=== PATIENT | female | born 1975 | race Caucasian/White ===

== ENCOUNTER → 2018-07-03 | Outpatient (REF) | payer BC ==
[2018-07-03 13:08] LABS: IMMUNOGLOBULIN A 98 MG/DL (70-400)
[2018-07-03 13:37] LABS: CONTROL LINE HPYORI INT CTR LINE PRESENT; H PYLORI QUALITATIVE IgG NEGATIVE (NEGATIVE)
[2018-07-05 00:30] LABS: TISSUE TRANSGLUTAMINASE IgA <2 U/mL (0-3)
[2018-07-05 00:30] LABS: ENDOMYSIAL ABY IgA Negative (Negative)
== END ==
LOC: M LAB REF 12:35
DX: R19.4 Change in bowel habit (principal)
CPT/HCPCS: 86255

== ENCOUNTER → 2019-09-19 | Outpatient (CLI) | payer BC, SELFPAY ==
--- NOTE | 2019-09-19 11:38 | REP ---
DIGITAL DIAGNOSTIC BILATERAL MAMMOGRAPHY WITH CAD, 3D TOMOGRAPHY, AND FOCUSED RIGHT BREAST SONOGRAPHY: HISTORY: Palpable lump right breast times 6 days. Comparison mammography September 19, 2014. FINDINGS: A skin marker is affixed to the skin at the site of the palpable lump in the upper outer quadrant right breast. Routine views are augmented by magnified focal spot compression images. They are two small well circumscribed nodular densities in the upper outer quadrant approximately 4 cm away from the skin marker. These are felt to be unchanged from the 2015 prior mammography. Breast parenchyma remains heterogeneously dense in a pattern which may inhibit the sensitivity of mammography although there has been some involutional change. No other significant mammographic finding is seen in either breast. No spiculation, microcalcification or architectural distortion is seen. No worrisome skin changes appreciated. SONOGRAPHIC FINDINGS: The right breast is scanned in the upper outer quadrant. At 9-o'clock position, 4 cm from the nipple, there is a 6 x 5 x 4 mm cyst. In the 10-o'clock position approximately 1 cm from the nipple, there is a 7 x 6 by 3 mm hypoechoic lesion consistent with a grouping of microcysts. This has a benign appearance with a well defined back wall and enhanced through transmission. These are felt to account for the mammographic opacities. Sonographic findings are otherwise normal. Mildly heterogeneous fibroglandular background echotexture is seen. IMPRESSION: BIRADS 2: BI-RADS/ACR category 2 mammogram. Benign Findings. BIRADS category 2 benign findings. Clinical followup is advised. Repeat screening mammography recommended 1 year. This mammogram was interpreted with the aid of an FDA-approved computer-aided detection system. The patient states she had a clinical breast exam in September 2019. The patient letter being requested is M2 dense This patient's estimated Tyrer-zick lifetime risk assessment for the breast cancer is 9.5 %.
== END ==
LOC: M WHC 08:02
PROVIDERS: ATTEND Nurse Practitioner Women's Health
DX: N60.01 Solitary cyst of right breast (principal)
CPT/HCPCS: 76642; 77066; G0279

== ENCOUNTER 2019-12-27 15:08 | Emergency (ER) | payer MEDICAID, OTHER, SELFPAY ==
[~2019-12-27] VITALS: Ht 170.2 cm; Wt 82.1 kg
[2019-12-27] MEDS ORDERED: MM S100C PO (15:16)
[2019-12-27] MEDS ORDERED: LISI10TA4 PO (15:16)
[2019-12-27] MEDS ORDERED: FERR325T3 PO (15:16)
[2019-12-27 16:26] LABS: BASO # 0.1 10^3/uL (0.0-0.2); BASO % 0.6 % (0.0-1.0); EOS # 0.3 10^3/uL (0.0-0.5); EOS % 3.1 % (0.0-3.0); HEMATOCRIT 34.6 % (36.0-47.0); HEMOGLOBIN 10.3 g/dl (12.0-15.5); LYMPH # 2.6 10^3/uL (1.5-5.0); MEAN CORPUSCULAR HEMOGLOBIN 22.2 pg (27.0-33.0); MEAN CORPUSCULAR HGB CONC 29.8 g/dl (32.0-36.5); MEAN CORPUSCULAR VOLUME 74.7 fl (80.0-96.0); MONO # 0.5 10^3/uL (0.0-0.8); MONO % 6.3 % (0.0-5.0); NEUTROPHILS # 4.5 10^3/uL (1.5-8.5); NEUTROPHILS % 56.7 % (36.0-66.0); PLATELET COUNT, AUTOMATED 401 10^3/uL (150-450); RED BLOOD COUNT 4.63 10^6/uL (4.00-5.40)
[2019-12-27 16:43] LABS: ALBUMIN 3.7 GM/DL (3.2-5.2); ALT/SGPT 25 U/L (12-78); BILIRUBIN,DIRECT < 0.1 MG/DL (0.0-0.2); BILIRUBIN,TOTAL 0.3 MG/DL (0.2-1.0); LIPASE 105 U/L (73-393); TOTAL PROTEIN 7.1 GM/DL (6.4-8.2)
[2019-12-27 18:16] VITALS: BP 136/87
--- NOTE | 2020-01-15 07:01 | REP ---
Clinical: Pelvic pain and menorrhagia. Technique: Transabdominal pelvic ultrasound followed by transvaginal examination for better evaluation of the endometrium and adnexa with color Doppler evaluation of the ovaries. Findings: Bladder is unremarkable and under distended measuring approximately 7.6 x 2.5 x 2.8 cm. Enlarged anteverted myomatous uterus measures 12.2 x 80.1 x 10.6 cm including posterior submucosal/subserosal fibroid measuring 6.0 x 4.9 x 4.7 cm, right fundal fibroid measuring 3.3 x 3.3 x 4.2 cm and right submucosal fibroids measuring 2.8 x 2.9 x 3.0 cm and 2.7 x 3.8 x 3.9 cm. The endometrial complex measures 13 mm thickness. Small Nabothian cysts are suggested. The bilateral ovaries are normal in appearance and vascularity without torsion. Right ovary measures 2.8 x 1.5 x 2.5 cm (RI 0.62). Left ovary measures 1.2 x 1.2 x 1.3 cm (RI 0.72). No pelvic fluid or adnexal mass lesion. Impression: 1. Enlarged myomatous uterus. 2. Normal ovaries without torsion. Electronically Signed by Raimundo Bosch MD 01/15/2020 06:52 A
--- NOTE | 2020-01-16 13:36 | ED PDOC ---
Post-Departure Follow-Up daniel rosado faxed formal report of pelvis us for fu Reilly Husain MD Jan 16, 2020 13:36
== END 2019-12-27 18:25 | disposition home or self-care (01) ==
LOC: M ED 15:08
DX: D25.9 Leiomyoma of uterus, unspecified (principal); N93.9 Abnormal uterine and vaginal bleeding, unspecified

== ENCOUNTER → 2020-01-20 | Outpatient (CLI) | payer MEDICAID ==
[~2020-01-20] MED LIST: FERR325T3 PO; IBUP-1022 PO; LISI10TA4 PO; MM S100C PO; MULTCAP PO; NORC1TAB7 PO
== END ==
LOC: M LABSMTC 11:08
PROVIDERS: ATTEND Anesthesiology
DX: Z03.818 Encounter for observation for suspected exposure to other biological agents ruled out (principal); Z11.59 Encounter for screening for other viral diseases
CPT/HCPCS: C9803; U0003

== ENCOUNTER 2020-01-23 07:49 | Day surgery (SDC) | payer MEDICAID ==
[2020-01-23] VITALS (8 sets, daily range): BP systolic 99–128; BP diastolic 57–76
[~2020-01-23] VITALS: Ht 167.6 cm; Wt 86.0 kg
[~2020-01-23 07:49] MED LIST changes: -IBUP-1022 PO; +LIDOCAINE 1% MDV 20ML VIAL SQ PRN; +LR 1,000 ML IV ONE; -MULTCAP PO; -NORC1TAB7 PO; +PHENAZOPYRIDINE 100 MG TAB PO ONE; +ceFAZolin SOD 2 GM in IV 1 EA IV ONE
[2020-01-23 09:09] LABS: HEMATOCRIT 37.5 % (36.0-47.0); HEMOGLOBIN 11.5 g/dl (12.0-15.5); MEAN CORPUSCULAR HEMOGLOBIN 25.1 pg (27.0-33.0); MEAN CORPUSCULAR HGB CONC 30.7 g/dl (32.0-36.5); MEAN CORPUSCULAR VOLUME 81.9 fl (80.0-96.0); PLATELET COUNT, AUTOMATED 309 10^3/uL (150-450); RED BLOOD COUNT 4.58 10^6/uL (4.00-5.40); WHITE BLOOD COUNT 6.7 10^3/uL (4.0-10.0)
[2020-01-23 09:32] LABS: HCG, SERUM QUALITATIVE NEGATIVE (NEGATIVE)
[2020-01-23] MEDS ORDERED: METHYLENE BLUE 0.5% (5MG/ML) 10 ML AMP (PROVAYBLUE) As Ordered ONE (09:34)
[2020-01-23] MEDS ORDERED: SUGAMMADEX SODIUM 500 MG/5 ML VIAL (BRIDION) As Ordered ONE (09:47)
[2020-01-23] MEDS ORDERED: fentaNYL 250 MCG/5 ML INJECTION (J3010) As Ordered ONE (09:47)
[2020-01-23] MEDS ORDERED: MIDAZOLAM INJ 2MG/2ML VIAL (J2250 PER 1MG) As Ordered ONE (09:47)
[2020-01-23] MEDS ORDERED: METOCLOPRAMIDE INJ 10MG/2ML VIAL (J2765 PER 1) As Ordered ONE (09:47)
[2020-01-23] MEDS ORDERED: ONDANSETRON 4MG/2ML VIAL As Ordered ONE (09:47)
[2020-01-23] MEDS ORDERED: dexameTHASONE 4 MG/ML 1ML VIAL (J1100 PER 1MG) As Ordered ONE (09:47)
[2020-01-23] MEDS ORDERED: propofoL 200 MG/20 ML VIAL As Ordered ONE (09:47)
[2020-01-23] MEDS ORDERED: ROCURONIUM BROMIDE 50 MG/5 ML VIAL As Ordered ONE ×3 (09:47→13:18)
[2020-01-23] MEDS ORDERED: LIDOCAINE 2% 100MG/5ML SDV (FOR ANES.) As Ordered ONE (09:47)
[2020-01-23] MEDS ORDERED: LABETALOL 100MG/20ML VIAL As Ordered ONE (10:52)
[2020-01-23] MEDS ORDERED: ACETAMINOPHEN 1000MG 100ML IV BTL (OFIRMEV) (J0131 PER 10MG) As Ordered ONE (11:27)
[2020-01-23] MEDS ORDERED: KETOROLAC 60MG 2ML VIAL As Ordered ONE (11:37)
[2020-01-23] MEDS ORDERED: HYDROmorphone HCL 2 MG/ML 1ML VIAL (J1170) As Ordered ONE (11:38)
[2020-01-23] MEDS ORDERED: ONDANSETRON 4MG/2ML VIAL IV PRN (14:45)
[2020-01-23] MEDS ORDERED: EPIDURAL/PCA KEYS XX PRN (14:45)
[2020-01-23] MEDS ORDERED: NALBUPHINE HCL 10 MG/ML AMP (J2300) IV PRN (14:45)
[2020-01-23] MEDS ORDERED: diphenhydrAMINE 50MG/ML VIAL (J1200) IV PRN (14:45)
[2020-01-23] MEDS ORDERED: NALOXONE INJ 0.4MG/1ML VIAL (J2310 PER 1MG) IV PRN (14:45)
[2020-01-23] MEDS: LR 1,000 ML IV SCH ×2 (14:45→23:31)
[2020-01-23] MEDS ORDERED: LR 1,000 ML IV SCH (14:45)
[2020-01-23] MEDS ORDERED: METOCLOPRAMIDE INJ 10MG/2ML VIAL (J2765 PER 1) IV PRN (14:45)
[2020-01-23] MEDS: MEPERIDINE INJ 25 MG/ML VIAL (J2175) IV PRN ×2 (14:45→14:54)
[2020-01-23] MEDS ORDERED: NS 1,000 ML IV SCH (14:45)
[2020-01-23] MEDS: MORPHINE 1MG/ML IN 0.9% NACL 100ML IV BAG IV PRN (14:53)
[2020-01-23] MEDS: fentaNYL 100 MCG/2 ML INJECTION (J3010) IV PRN ×8 (15:15→15:53)
[2020-01-23] MEDS: PERCOCET 5MG/325MG TAB PO PRN ×2 (15:17→15:48)
[2020-01-23] MEDS: IBUPROFEN 600MG TAB PO PRN (21:03)
[2020-01-24] MEDS: MORPHINE 1MG/ML IN 0.9% NACL 100ML IV BAG IV PRN (00:26)
[2020-01-24 06:00] VITALS: BP 106/64
[2020-01-24] MEDS ORDERED: NORCO, ANEXSIA 5/325MG TABLET (HYDROcodone/ACETAMINOPHEN) PO PRN (06:00)
[2020-01-24] MEDS: IBUPROFEN 600MG TAB PO PRN (06:09)
[2020-01-24] MEDS: LR 1,000 ML IV SCH (06:09)
[2020-01-24 06:32] LABS: HEMATOCRIT 28.5 % (36.0-47.0); HEMOGLOBIN 8.9 g/dl (12.0-15.5); MEAN CORPUSCULAR HEMOGLOBIN 26.2 pg (27.0-33.0); MEAN CORPUSCULAR HGB CONC 31.2 g/dl (32.0-36.5); MEAN CORPUSCULAR VOLUME 83.8 fl (80.0-96.0); PLATELET COUNT, AUTOMATED 244 10^3/uL (150-450)
[2020-01-24 08:13] VITALS: BP 123/81
[2020-01-24] MEDS ORDERED: lisinopriL 10 MG TAB PO SCH (09:00)
[2020-01-24] MEDS ORDERED: IBUP-1022 PO (11:32)
[2020-01-24] MEDS ORDERED: MULTCAP PO (11:32)
[2020-01-24] MEDS ORDERED: NORC1TAB7 PO (11:32)
--- NOTE | 2020-01-25 10:06 | RO ---
DATE OF PROCEDURE: 01/23/2020 PREOPERATIVE DIAGNOSIS: Pain, bleeding and fibroids. POSTOPERATIVE DIAGNOSIS: Pain, bleeding and fibroids. PROCEDURE: Robotic assisted hysterectomy with bilateral salpingectomy and cystourethroscopy due to the patient's large 744 gram fibroid uterus. SURGEON: Dr. Daisy George MANAGER PRODUCT SUPPORT: Amada Feliz ANESTHESIA: General endotracheal anesthesia. DESCRIPTION OF PROCEDURE: Bárbara was brought to the operating room where sufficient general endotracheal anesthesia was induced and she was prepped, positioned and draped. The uterine manipulator was then placed. The patient had a flush cervix from her previous LEEP procedure, but under anesthesia it was more readily palpable, especially since she had a between 16 to 18 week sized uterus, which could be pushed down from above to facilitate some of this evaluation, but she did have a smaller cervix, so a medium sized Dylan manipulator was placed. Of course, the Sandoval with the ability to backfill was placed. Attention was then turned to the abdomen. A transverse semilunar incision was made below the umbilicus. Sharp and blunt dissection were continued through subcutaneous tissues to the level of the rectus fascia, which was transversely incised under direct visualization and secured with #0 Vicryl retention sutures. Then the peritoneum entered under direct visualization in an open laparoscopic technique. The Hardin cannula was placed and CO2 insufflation was then begun. After adequate CO2 insufflation, the camera was placed. We were careful to avoid injury to the uterus, which was nearly to the umbilicus and so we had to manipulate around it. It was slightly leaning towards the patient's right side, more prominently than left as noted in the photographs with a slight rotation bringing the left ovary well up out of the pelvis, but the fibroid seemed to be originating within the uterine corpus rather than the cervix fortunately. She also had a previous tubal ligation, but a plan for removal of the tubal stumps. They were completely in midline so the distal tubal stumps were the removed and passed out laparoscopically after we had of course docked the robot, so we did make two left side and one right side wounds for the trocars for the robot tools and the assistance port and, of course, used the umbilicus for the camera. Then, as already noted, we elevated, cauterized and removed the fimbriated portions of the tubes and then carefully began the dissection for the robotic work. Because of the uterine distortion and alteration of anatomy, we began on the round ligament on the left. Then the utero-ovarian suspensory ligament on the left in this patient who desired to keep her tubes. Then carefully worked through the broad ligament and then because it was visible worked through the extensive adhesions from the patient's previous C-sections, guarding over the bladder flap. Then after we had freed a good portion of the left side, but of course not the uterine vasculature, we then used the assistance grasper to try to lean the uterus out of that right side so that we could get access. We freed up the round ligament on the right side and this further facilitated mobility of the uterus and we were able to join up the broad ligament dissection anteriorly and then work towards the utero-ovarian suspensory ligament to free the ovary to leave it behind on the right side and then continued posterior dissection. Having freed both sides, we did back fill the bladder and find that the bladder was indeed very close to this dissection, but we had been doing cold dissection over the adhesions so we did not have an injury to the bladder there, and carefully continued that cold dissection to get the bladder out of the way because we knew that there would be considerable recruited vasculature for this large uterus. We then carefully cauterized the uterine vasculature working through on each side and when we had a significant portion of the uterine vessels controlled we then made the colpotomy anteriorly and worked out laterally towards that dissection and then having freed the anterior portion and the vessels we then rotated the uterus so that we could get access to the posterior completion of that colpotomy. Then, with the uterus free, we moved to vaginal work. We delivered the cervix into the vagina, but of course the enlarged uterus would not come intact, so we used the super cut scissors, the large ones, to carefully segment the uterus and remove it in portions, removing some of the fibroids intact as well, and watching from above to be sure that we did not cause any injury abdominally. When the uterus was fully delivered, it was weighed without the tubal portions and the uterus and fibroids were 744 grams. We then worked robotically to close the cuff with V-Loc suture with good approximation and hemostasis achieved. Given the patient's atypical anatomy, the distortion of her anatomy and the multiple large vessels that we had to control, even though they had evidence of blood and not of urine, had given the patient Pyridium so that we could go ahead and scope her at this point in the case. With cystoscopy, we could confirm no injury to the bladder and bilateral ureteral jets of that Pydriumized urine so quite clearly seen. The procedure was then ended with the CO2 allowed to escape the abdomen. The deep wound at the umbilicus closed with the #0 Vicryl retention sutures and #3-0 Vicryl used at all skin for those four wounds. Dry sterile dressings were then applied. Estimated blood loss for the procedure about 250 mL. Fluid replacement was crystalloid. Complications: None. Condition and Disposition: Bárbara tolerated the procedure well and was recovering in the recovery room in good condition.
== END 2020-01-24 12:32 | disposition home or self-care (01) ==
LOC: M SDC 07:49 → M MSPAV 17:35 → M SDC 01-24 12:32
PROVIDERS: ATTEND Obstetrics & Gynecology
DX: N80.0 Endometriosis of uterus (principal); N88.8 Other specified noninflammatory disorders of cervix uteri; D25.9 Leiomyoma of uterus, unspecified; R10.2 Pelvic and perineal pain; I10 Essential (primary) hypertension; G43.909 Migraine, unspecified, not intractable, without status migrainosus; D64.9 Anemia, unspecified; Z91.040 Latex allergy status; Z91.013 Allergy to seafood; Z79.899 Other long term (current) drug therapy
CPT/HCPCS: 36415; 58573; 84703; 85027; 86850; 86900; 86901; 88309; 96361; 96375; J0131; J0690; J1100; J1170; J1885; J2175; J2250; J2405; J2765; J3010; Q9968

== ENCOUNTER → 2020-08-04 | Outpatient (REF) | payer OTHER ==
[~2020-08-04] MED LIST changes: +IBUP-1022 PO; -LIDOCAINE 1% MDV 20ML VIAL SQ PRN; -LR 1,000 ML IV ONE; +MULTCAP PO; +NORC1TAB7 PO; -PHENAZOPYRIDINE 100 MG TAB PO ONE; -ceFAZolin SOD 2 GM in IV 1 EA IV ONE
[2020-08-04 16:44] LABS: AMORPHOUS SEDIMENT SMALL (NEGATIVE); APPEARANCE, URINE CLOUDY (CLEAR); BACTERIA, URINE AUTO 1+ (NEGATIVE); BILIRUBIN, URINE AUTO NEGATIVE (NEGATIVE); BLOOD, URINE BLOOD NEGATIVE (NEGATIVE); COLOR, URINE YELLOW (YELLOW); GLUCOSE, URINE (UA) AUTO NEGATIVE (NEGATIVE); KETONE, URINE AUTO NEGATIVE (NEGATIVE); LEUKOCYTE ESTERASE, URINE AUTO NEGATIVE (NEGATIVE); MUCUS, URINE SMALL (NEGATIVE); NITRITE, URINE AUTO NEGATIVE (NEGATIVE); PROTEIN, URINE AUTO NEGATIVE (NEGATIVE); RBC, URINE AUTO 2 /HPF (0-3); SPECIFIC GRAVITY URINE AUTO 1.021 (1.002-1.035); SQUAMOUS EPITHELIAL CELL UR AU 7 /HPF (0-6); UROBILINOGEN, URINE AUTO 0.2 mg/dL (0.0-2.0); WBC, URINE AUTO 2 /HPF (0-3)
== END ==
LOC: M LAB REF 16:23
PROVIDERS: ATTEND Obstetrics & Gynecology
DX: N39.0 Urinary tract infection, site not specified (principal)

== ENCOUNTER → 2021-11-05 | Outpatient (CLI) | payer BC, OTHER ==
[~2021-11-05] MED LIST changes: +LISI10TA22 PO; -LISI10TA4 PO
== END ==
LOC: M LABSMTC 09:17
PROVIDERS: ATTEND Internal Medicine Gastroenterology
DX: Z01.812 Encounter for preprocedural laboratory examination (principal); Z20.822 Contact with and (suspected) exposure to COVID-19

== ENCOUNTER 2021-11-10 09:40 | Day surgery (SDC) | payer BC ==
[~2021-11-10] VITALS: Ht 167.6 cm; Wt 73.9 kg
[~2021-11-10 09:40] MED LIST changes: +LISI30TA4 PO; +NS 1,000 ML IV ONE; +PHEN30CA21 PO; +RIZA10TA58 PO
[2021-11-10] MEDS ORDERED: propofoL 200 MG/20 ML VIAL As Ordered ONE ×2 (10:22→10:37)
[2021-11-10] MEDS ORDERED: LIDOCAINE 2% 100MG/5ML SDV (FOR ANES.) As Ordered ONE (10:23)
[2021-11-10 11:10] VITALS: BP 133/86
== END 2021-11-10 11:14 | disposition home or self-care (01) ==
LOC: M OPP 09:40
PROVIDERS: ATTEND Internal Medicine Gastroenterology
DX: Z12.11 Encounter for screening for malignant neoplasm of colon (principal); K64.0 First degree hemorrhoids; Z79.899 Other long term (current) drug therapy; Z91.013 Allergy to seafood; Z91.040 Latex allergy status

== ENCOUNTER → 2022-12-01 | Outpatient (CLI) | payer BC ==
[~2022-12-01] MED LIST changes: -NS 1,000 ML IV ONE
== END ==
LOC: M WHC 12:49
PROVIDERS: ATTEND Family Medicine
DX: Z12.31 Encounter for screening mammogram for malignant neoplasm of breast (principal); R92.8 Other abnormal and inconclusive findings on diagnostic imaging of breast

== ENCOUNTER → 2022-12-21 | Outpatient (CLI) | payer BC | LOC: M WHC 13:26 | PROVIDERS: ATTEND Family Medicine | DX: R92.8 Other abnormal and inconclusive findings on diagnostic imaging of breast (principal); N63.10 Unspecified lump in the right breast, unspecified quadrant | CPT/HCPCS: 76642; 77065; G0279 ==

== ENCOUNTER → 2023-06-14 | Outpatient (CLI) | payer BC, OTHER | LOC: M WHC 09:46 | PROVIDERS: ATTEND Family Medicine | DX: R92.8 Other abnormal and inconclusive findings on diagnostic imaging of breast (principal); R92.321 Mammographic fibroglandular density, right breast | CPT/HCPCS: 76642; 77065; G0279 ==

== ENCOUNTER → 2023-11-15 | Outpatient (REF) | payer OTHER, BC ==
[2023-11-15 13:04] LABS: LUTEINIZING HORMONE 4.6 mIU/ML
[2023-11-15 13:05] LABS: FOLLICLE STIMULATING HORMONE 8.4 mIU/ML
[2023-11-15 13:06] LABS: PROGESTERONE 8.68 NG/ML
== END ==
LOC: M LAB REF 12:08
PROVIDERS: ATTEND Family Medicine
DX: Z78.0 Asymptomatic menopausal state (principal)

== ENCOUNTER → 2024-06-11 | Outpatient (CLI) | payer BC | LOC: M WHC 06:58 | PROVIDERS: ATTEND Family Medicine | DX: Z12.31 Encounter for screening mammogram for malignant neoplasm of breast (principal); R92.323 Mammographic fibroglandular density, bilateral breasts ==

== ENCOUNTER → 2025-06-16 | Outpatient (CLI) | payer BC ==
[~2025-06-16] MED LIST changes: -IBUP-1022 PO; +IBUP600T42 PO
== END ==
LOC: M WHC 10:00
PROVIDERS: ATTEND Family Medicine
DX: Z12.31 Encounter for screening mammogram for malignant neoplasm of breast (principal); R92.323 Mammographic fibroglandular density, bilateral breasts